=== PATIENT | female | born 1975 | race Caucasian/White ===

== ENCOUNTER → 2023-10-12 17:59 | Outpatient (REF) | payer OTHER, SELFPAY | LOC: WDC 17:59 | PROVIDERS: ATTENDING PHYSICIAN Family Medicine | DX: Z12.31 Encounter for screening mammogram for malignant neoplasm of breast (principal) | CPT/HCPCS: 77063; 77067 ==

== ENCOUNTER → 2024-02-07 09:57 | Outpatient (REF) | payer OTHER, SELFPAY | LOC: RAD 09:57 | PROVIDERS: ATTENDING PHYSICIAN Family Medicine; REFERRING PHYSICIAN Internal Medicine Gastroenterology | DX: R60.0 Localized edema (principal); Z68.41 Body mass index [BMI] 40.0-44.9, adult | CPT/HCPCS: 93971 ==

== ENCOUNTER → 2024-02-15 09:17 | Outpatient (REF) | payer OTHER, SELFPAY | LOC: RAD 09:17 | PROVIDERS: ATTENDING PHYSICIAN Family Medicine | DX: M79.89 Other specified soft tissue disorders (principal) | CPT/HCPCS: 73630 ==

== ENCOUNTER 2024-07-15 14:22 | Emergency (ER) | payer OTHER, SELFPAY ==
[2024-07-15 14:26] VITALS: BP 166/101
--- NOTE | 2024-07-15 14:47 | ED.GENMED ---
History of Present Illness
General
Chief Complaint: Musculo-Skeletal Complaint
Source: patient
Exam Limitations: none
Time Seen by Provider: 07/15/24 14:36
History of Present Illness
History of Present Illness:
See MDM
Past History
Past History
ED Past Medical History: Other (Crohns)
ED Past Surgical History: None
Social History
Tobacco: Non-smoker
Alcohol: None
Phy Exam
Physical Exam
Physical Exam:
See MDM
Course
Orders/Labs/Results
Orders:
Orders
07/15/24 14:45
Crutches-Treatment ONCE
Tramadol HCl [Ultram] 50 mg PO NOW STA
Foot, Left 3 View [CR Foot - Left Min 3 Views] Urgent
Comment:
Reason For Exam: distal mid foot pain
Foot, Right 3 View [CR Foot - Right Min 3 Views] Urgent
Comment:
Reason For Exam: distal mid foot pain
Vital Signs
Initial and Last Documented VS:
Initial Vital Signs
Temp Pulse Resp BP Pulse Ox
98 F 100 16 166/101 98
07/15/24 14:26 07/15/24 14:26 07/15/24 14:26 07/15/24 14:26 07/15/24 14:26
Last Documented Vital Signs
Temp Pulse Resp BP Pulse Ox
98 F 87 18 131/72 99
07/15/24 14:26 07/15/24 16:08 07/15/24 16:08 07/15/24 16:08 07/15/24 16:08
MDM/Problems Addressed
Differential Diagnosis Includes:
HPI and MDM Narrative:
49-year-old female presenting for evaluation of bilateral foot pain. Patient developed a stress fracture in her left foot. This occurred several months ago. She required the use of a boot. Due to the stress that it put on her left knee, she
developed a stress fracture in her left knee. All symptoms were improving but she went bowling last month and reinjured both feet. She is now developing pain in her right knee. She has since followed up with her orthopedist again and had an x-ray
of her right knee and is scheduled for an MRI. Because of her Crohn's diagnosis, she does not take Motrin. She states Tylenol is not helping. She already has a prescription of Percocet but does not like the side effects. She has follow-up with
podiatry at the orthopedic office to evaluate both feet.
Will obtain x-rays of her feet and will provide crutches. Will give trial of tramadol
Patient does acknowledge that she was under the impression that we could potentially get the extremity MRI from the emergency department. Patient does understand that this is a nonemergent order and is better suited in the outpatient setting.
Patient seems to understand and acknowledge
Physical exam
General: Well appearing and non-toxic
HEENT: protecting airway
Neck: appears supple
CV: No evidence of cyanosis
Resp: No accessory muscle use
Abd: Non-distended
Extremities: No deformities. Very mild tenderness to bilateral feet along the dorsal aspect to the MTP joints. DP pulses intact. Foot otherwise neurovascularly intact
Neuro: alert
Psych: Normal affect
Skin: Intact
Problems Addressed including Acute and Chronic Conditions affecting care:
1. Bilateral foot pain
Acuity: acute
Prognosis: stable
Details: Will obtain x-rays but discussed better pain control and follow-up with podiatry
Updates
X-rays negative for fracture. Patient feeling better after tramadol. Patient ambulating
Differential Diagnosis (but not limited to): Stress fracture, foot strain
Testing considered: Right knee x-ray but this was already evaluated by orthopedics
Drug therapy (if applicable): OTC meds, please see d/c instruction regarding Rx drugs
Amount and/or Complexity of Data Reviewed
Clinical info obtained from: Patient
External data reviewed: N/A
Labs I independently reviewed (but not limited to): N/A
Radiology: X-ray independently reviewed: No fracture noted on foot x-rays
Pulse Ox: not hypoxic
EKG independently reviewed: N/A
Fig Caprifier: N/A
Critical Care: N/A
Risk of Complication:
Social Determinants of health: Good social support
Discussed with other providers: N/A
Escalation of Care includes Admit/Obs: After being observed in the Emergency Department, pt stable for discharge.
Occasional wrong word or 'sound a like' substitutions may have occurred due to the inherent limitations of voice recognition software. Read the chart carefully and recognize, using context, where substitutions have occurred.
*Critical Care Note
Total Time (30-74mins, 75-104mins- exclusive of procedures): Not Applicable
ED Attending Note
-
Portions of this chart may have been created with voice recognition software.� Occasional wrong word or��sound alike� substitutions may have occurred due to the inherent limitations of voice recognition software.
Discharge Plan
Departure
Patient Disposition: Home (Routine Discharge)
Date of Disposition: 07/15/24
Time of Disposition: 16:21
Patient with high blood pressure during this ER visit?: Yes
Discharge Problem:
Foot pain, bilateral
Instructions: Foot sprain
Prescriptions:
New
tramadol 50 mg tablet
50 mg PO BID PRN (Reason: pain) Qty: 14 0RF
Referrals:
Jesus Hudson MD [Family Provider] -
Activity Restrictions/Additional Instructions:
Please return for any worsening symptoms.
You may return at any time if you have further concerns.
Please keep your podiatry appointment and orthopedic appointment.
Thank you for choosing [facility].
Interventions
Interventions:
*Risk Screen - Suicide Last Done: 07/15/24 14:30
*General Assessment Last Done: 07/15/24 16:07
*Neglect/Abuse Screening Last Done: 07/15/24 14:30
*ED COVID-19 Vaccine History Last Done: 07/15/24 16:07
ED-Musculoskeletal Assessment Last Done: 07/15/24 16:11
Discharge Date and Time
Print Language: [id number]
[2024-07-15] MEDS: ULTRAM 50 MG PO (15:44)
[2024-07-15 16:07] VITALS: BMI 46.6
[2024-07-15 16:08] VITALS: BP 131/72
== END 2024-07-15 17:00 | disposition home or self-care (01) ==
LOC: EMR 14:22
PROVIDERS: EMERGENCY PHYSICIAN Student in an Organized Health Care Education/Training Program; FAMILY PHYSICIAN Family Medicine
DX: M79.671 Pain in right foot (principal); M79.672 Pain in left foot; K50.90 Crohn's disease, unspecified, without complications
CPT/HCPCS: 99283; 73630

== ENCOUNTER → 2024-08-08 12:56 | Outpatient (REF) | payer OTHER, SELFPAY | LOC: HWRAD 12:56 | PROVIDERS: ATTENDING PHYSICIAN Internal Medicine Gastroenterology; FAMILY PHYSICIAN Family Medicine | DX: K51.90 Ulcerative colitis, unspecified, without complications (principal) | CPT/HCPCS: 77080 ==

== ENCOUNTER → 2024-10-18 18:03 | Outpatient (REF) | payer OTHER, SELFPAY | LOC: WDC 18:03 | PROVIDERS: ATTENDING PHYSICIAN Obstetrics & Gynecology Gynecology; FAMILY PHYSICIAN Family Medicine | DX: Z12.31 Encounter for screening mammogram for malignant neoplasm of breast (principal) | CPT/HCPCS: 77063; 77067 ==

== ENCOUNTER → 2024-10-24 11:48 | Outpatient (REF) | payer OTHER, SELFPAY | LOC: RAD 11:48 | PROVIDERS: ATTENDING PHYSICIAN Physician Assistant Medical; FAMILY PHYSICIAN Family Medicine | DX: J20.9 Acute bronchitis, unspecified (principal); R05.1 Acute cough | CPT/HCPCS: 71046 ==

== ENCOUNTER 2025-02-12 13:00 | Outpatient (RCR) | payer OTHER, SELFPAY | END 2025-02-12 23:59 | disposition home or self-care (01) | LOC: RPT 13:00 | PROVIDERS: ATTENDING PHYSICIAN Student in an Organized Health Care Education/Training Program; FAMILY PHYSICIAN Internal Medicine | DX: M25.552 Pain in left hip (principal); Z73.6 Limitation of activities due to disability; R26.89 Other abnormalities of gait and mobility; M23.52 Chronic instability of knee, left knee; M62.81 Muscle weakness (generalized) | CPT/HCPCS: 97110; 97162; 97535 ==

== ENCOUNTER 2025-03-13 08:34 | Outpatient (RCR) | payer OTHER, SELFPAY | END 2025-03-13 23:59 | disposition home or self-care (01) | LOC: RPT 08:34 | PROVIDERS: ATTENDING PHYSICIAN Student in an Organized Health Care Education/Training Program; FAMILY PHYSICIAN Internal Medicine | DX: M25.552 Pain in left hip (principal); Z73.6 Limitation of activities due to disability; R26.89 Other abnormalities of gait and mobility; M23.52 Chronic instability of knee, left knee; M62.81 Muscle weakness (generalized) | CPT/HCPCS: 97110; 97530; 97535 ==